=== PATIENT | female | born 1990 | race Caucasian/White ===

== ENCOUNTER → 2023-07-12 11:46 | Outpatient (CLI) | payer OTHER, SELFPAY ==
[2023-07-12 15:20] LABS: Urine N gonorrhoeae NOT DETECTED
[2023-07-12 15:27] LABS: Urine Chlamydia NOT DETECTED
== END ==
PROVIDERS: PCP Nurse Practitioner Family; Visit Provider Student in an Organized Health Care Education/Training Program
DX: Z34.81 Encounter for supervision of other normal pregnancy, first trimester (principal)
CPT/HCPCS: 87491; 87591

== ENCOUNTER → 2023-07-25 15:55 | Outpatient (CLI) | payer OTHER, SELFPAY ==
[2023-07-25 17:42] LABS: Add Manual Diff / Slide Review NO; Basophils Absolute Auto 0 /uL (0-100); Basophils Percent Auto 0.5 % (0-2); Eosinophils Absolute Auto 100 /uL (0-450); Eosinophils Percent Auto 1.3 % (2-4); Hematocrit 31.7 % (36-46); Hemoglobin 10.2 g/dL (12.0-16.0); Lymphocytes Absolute Auto 2100 /uL (1100-4500); Lymphocytes Percent Auto 29.4 % (25-40); Mean Corpuscular HGB Conc 32.3 % (30-36); Mean Corpuscular Volume 71.1 fL (80-100); Monocytes Absolute Auto 400 /uL (0-900); Monocytes Percent Auto 6.3 % (3-14); Neutrophils Absolute Auto 4500 /uL (1500-7000); Neutrophils Percent Auto 62.5 % (50-75); Platelet Count 415 X10^3/uL (150-400); Red Blood Cell Count 4.47 X10^6/uL (4.0-5.2); Red Cell Distribution Width 17.5 % (11.6-14.8); White Blood Cell Count 7.1 X10^3/uL (4.5-11.0)
[2023-07-25 18:06] LABS: Alanine Aminotransferase 15 IU/L (<35); Albumin 4.3 g/dL (3.5-5.0); Albumin Globulin Ratio 1.2 (1.0-2.8); Alkaline Phosphatase 58 U/L (38-126); Aspartate Aminotransferase 20 IU/L (14-36); BUN Creatinine Ratio 17.1 (6-22); Bilirubin Total 0.4 mg/dL (0.2-1.3); Blood Urea Nitrogen 7 mg/dL (7-17); Calcium 9.1 mg/dL (8.4-10.2); Carbon Dioxide 22 mmol/L (22-32); Chloride 104 mmol/L (98-107); Estimated Glomerular Filt Rate > 60 mL/min (>60); Globulin 3.5 g/dL (1.7-4.1); Glucose 79 mg/dL (70-100); HEMOLYSIS < 15 (0-50); Sodium 134 mmol/L (137-145); Total Protein 7.8 g/dL (6.3-8.2)
[2023-07-25 18:20] LABS: Free T4, Direct Thyroxine 1.32 ng/dL (0.78-2.19)
[2023-07-25 18:34] LABS: Thyroid Stimulating Hormone 0.707 uIU/mL (0.47-4.68)
[2023-07-25 19:44] LABS: Urine N gonorrhoeae NOT DETECTED
[2023-07-25 19:59] LABS: Urine Chlamydia NOT DETECTED
[2023-07-26 15:46] LABS: Hepatitis B Surface Antigen NEGATIVE s/c (NEGATIVE); Rubella Antibody IgG 14.2 IU/mL (>15)
[2023-07-26 16:12] LABS: HIV 1 & 2 Ab/Ag 4th Gen Combo NEGATIVE (NEGATIVE); Hep C Virus Ab w/Reflex Quant NEGATIVE s/c (NEGATIVE)
[2023-07-27 03:30] LABS: RPR Screen Non Reactive (Non Reactive)
[2023-07-27 08:42] LABS: Varicella IgG Antibody 630 index (Immune >165)
== END ==
LOC: LAB 15:58
PROVIDERS: PCP Nurse Practitioner Family; Referring Provider Student in an Organized Health Care Education/Training Program; Visit Provider Student in an Organized Health Care Education/Training Program
DX: O09.299 Supervision of pregnancy with other poor reproductive or obstetric history, unspecified trimester (principal)
CPT/HCPCS: 36415; 80053; 80055; 84439; 84443; 86787; 86803; 86850; 86900; 86901; 87086; 87389; 87491; 87591

== ENCOUNTER → 2023-09-07 13:15 | Outpatient (CLI) | payer OTHER, SELFPAY ==
[2023-09-07 15:01] LABS: INR 0.9 (0.9-1.3); Prothrombin Time 9.9 SECONDS (9.4-12.5)
[2023-09-07 15:03] LABS: PTT Partial Thromboplastin Tim 23 SECONDS (25.1-36.5)
[2023-09-07 15:14] LABS: Prolactin 51.9 ng/mL (3.0-18.6)
[2023-09-07 15:43] LABS: Vitamin D 25 Hydroxy (D3) 27.7 ng/mL (30.0-100.0)
[2023-09-10 15:31] LABS: AFP Value 33.4 ng/mL (.); Gest Age on Col Date 17.1 weeks (.); Insulin Dep Diabetes No (.); OSBR Risk 1IN 10000 (.); Results Report (.); Test Results *Screen Negative* (.)
[2023-09-12 02:36] LABS: Zinc 65 ug/dL (44-115)
== END ==
PROVIDERS: PCP Nurse Practitioner Family; Referring Provider Student in an Organized Health Care Education/Training Program; Visit Provider Student in an Organized Health Care Education/Training Program
DX: O99.840 Bariatric surgery status complicating pregnancy, unspecified trimester (principal)
CPT/HCPCS: 36415; 82105; 82306; 84146; 84630; 85610; 85730

== ENCOUNTER → 2023-09-11 15:16 | Outpatient (CLI) | payer OTHER, SELFPAY ==
--- NOTE | 2023-09-11 15:18 | DI.MRI.S_ITS ---
PROCEDURE: MR HEAD/BRAIN WO CON INDICATIONS: history of pituitary adenoma TECHNIQUE: Noncontrast axial T1 spin echo, axial T2 fast spin echo, sagittal and axial FLAIR, coronal T2 fast spin echo, axial gradient echo, axial diffusion and ADC through the brain. Additional thin section coronal T1 weighted and coronal T2 weighted images were obtained through the pituitary gland. COMPARISON: [facility], MR, MR ANGIO HEAD WO CON, 09/11/2023, 15:21. FINDINGS: Image quality: Excellent. CSF Spaces: Basal cisterns are patent. No extra-axial fluid collections. Ventricles are normal in size and shape. Brain: In this patient with this given history, scrutiny is given to the pituitary. To the limits of this noncontrast study, no masses are seen. A normal appearing T1 hyperintense bright spot can be seen along the posterior aspect of the pituitary. The pituitary stock is seen along the midline. The optic chiasm and ventral forebrain are within normal limits. No intracranial masses or hemorrhage. Barnett/white matter interface is normal. Brainstem appears normal. Diffusion-weighted images demonstrate no acute infarct. No chronic ischemic insults. Normal intravascular flow voids are present. Skull and face: Calvarium has normal marrow signal. Orbits appear normal. Sinuses: Sinuses and mastoids are clear. IMPRESSION: No pituitary abnormality is identified, to the limits of this noncontrast study. Dictated by: Isrrael Mei M.D. on 09/11/2023 at 16:29 Approved by: Isrrael Mei M.D. on 09/11/2023 at 16:31
--- NOTE | 2023-09-11 15:18 | DI.MRI.S_ITS ---
PROCEDURE: MR ANGIO HEAD WO CON INDICATIONS: check pituitary size TECHNIQUE: Noncontrast axial 3-D [id number] MR angiogram, with 3-dimensional maximum intensity projection (MIP) reformats of the internal carotid arteries and posterior circulation then performed. COMPARISON: None. FINDINGS: Image quality: Excellent. Anterior circulation: Intracranial internal carotid arteries demonstrate normal size and intraluminal flow signal. The flow within the paired anterior cerebral arteries is normal and symmetric. The flow within the middle cerebral arteries is normal and symmetric. The anterior communicating artery is seen. No stenoses, occlusions, or aneurysms. Posterior circulation: Visualized portions of the vertebral arteries demonstrate normal caliber, and join to form a normal appearing basilar artery. The flow within the posterior cerebral arteries is normal and symmetric. No stenoses, occlusions, or aneurysms. IMPRESSION: Unremarkable MR angiogram of the brain Approved by: Azeem Howell M.D. on 09/11/2023 at 18:49
== END ==
PROVIDERS: PCP Nurse Practitioner Family; Referring Provider Student in an Organized Health Care Education/Training Program; Visit Provider Student in an Organized Health Care Education/Training Program
DX: O09.291 Supervision of pregnancy with other poor reproductive or obstetric history, first trimester (principal); O99.281 Endocrine, nutritional and metabolic diseases complicating pregnancy, first trimester; E03.9 Hypothyroidism, unspecified; Z87.898 Personal history of other specified conditions
CPT/HCPCS: 70544; 70551

== ENCOUNTER → 2023-10-19 11:08 | Outpatient (CLI) | payer OTHER, SELFPAY ==
[2023-10-19 13:33] LABS: Free T4, Direct Thyroxine 1.27 ng/dL (0.78-2.19)
[2023-10-19 13:47] LABS: Thyroid Stimulating Hormone 0.325 uIU/mL (0.47-4.68)
== END ==
PROVIDERS: PCP Nurse Practitioner Family; Referring Provider Obstetrics & Gynecology; Visit Provider Obstetrics & Gynecology
DX: O99.280 Endocrine, nutritional and metabolic diseases complicating pregnancy, unspecified trimester (principal); E03.9 Hypothyroidism, unspecified
CPT/HCPCS: 36415; 84439; 84443

== ENCOUNTER → 2023-10-22 15:02 | Outpatient (CLI) | payer OTHER, SELFPAY ==
--- NOTE | 2023-10-22 15:03 | DI.US.S_ITS ---
PROCEDURE: US OB FOLLOW UP INDICATIONS: F/U RVOT/L S Spine were not clearly seen on first scan OUTSIDE/PRIOR DATING DATA: Last menstrual period (LMP): Unknown. LMP-based estimated date of delivery (DAYAN): Unknown. First dating scan (date and location): 06/28/2023. Estimated date of delivery (DAYAN) from first dating scan: 02/20/2024. The calculations are made using the clinical DAYAN of 02/14/2024. TECHNIQUE: Real-time scanning was performed of the fetus, with image documentation and biometric measurements. COMPARISON: [facility], , US OB <= 14 WEEKS FETUS, 07/12/2023, 9:16. Outside Facility, , US OB ANATOMICAL, 10/03/2023, 12:40. FINDINGS: General: A single living intrauterine gestation is present. Presentation: Breech. Placenta: Placental position is anterior , without previa. Amniotic fluid index: 10.2 cm, normal range is 5-24 cm. Single deepest vertical pocket is 3.3 cm. heart rate: 145 beats per minute. Maternal cervical canal: 3.5 cm long. Normal lower limit is 2.5 cm. biometrics: Composite gestational age from initial scan: 22 weeks 5 days Other: Right ventricular outflow tract is within normal limits. Spine appears to be within normal limits. IMPRESSION: Single live intrauterine with gestational age of 22 weeks 5 days. Right ventricular outflow tract is within normal limits. Spine appears to be within normal limits. We strive to produce accurate, complete, and clear reports of imaging services. To assist us in improving patient care, this report was composed using standard report templates and voice recognition software. Therefore, it may contain abnormal punctuation, insertions and/or omissions. Occasional wrong-word or sound-alike substitutions may occur. Though we review the report and make efforts to correct it, we do recommend that the report be read carefully in proper context to recognize any text inaccuracies. Dictated by: Angelia De La Cruz M.D. on 10/23/2023 at 8:33 Approved by: Angelia De La Cruz M.D. on 10/23/2023 at 8:37
== END ==
PROVIDERS: PCP Nurse Practitioner Family; Referring Provider Obstetrics & Gynecology; Visit Provider Obstetrics & Gynecology
DX: O32.1XX0 Maternal care for breech presentation, not applicable or unspecified (principal); Z3A.22 22 weeks gestation of pregnancy
CPT/HCPCS: 76816

== ENCOUNTER → 2023-11-13 16:13 | Outpatient (CLI) | payer OTHER, SELFPAY ==
[2023-11-13 18:16] LABS: Add Manual Diff / Slide Review NO; Basophils Absolute Auto 0 /uL (0-100); Basophils Percent Auto 0.4 % (0-2); Eosinophils Absolute Auto 100 /uL (0-450); Eosinophils Percent Auto 1.7 % (2-4); Hematocrit 36.6 % (36-46); Hemoglobin 12.4 g/dL (12.0-16.0); Lymphocytes Absolute Auto 2200 /uL (1100-4500); Lymphocytes Percent Auto 26.5 % (25-40); Mean Corpuscular HGB Conc 33.7 % (30-36); Mean Corpuscular Hemoglobin 29.3 PG (26-34); Mean Corpuscular Volume 86.7 fL (80-100); Monocytes Absolute Auto 400 /uL (0-900); Monocytes Percent Auto 5.1 % (3-14); Neutrophils Absolute Auto 5400 /uL (1500-7000); Neutrophils Percent Auto 66.3 % (50-75); Platelet Count 273 X10^3/uL (150-400); Red Blood Cell Count 4.22 X10^6/uL (4.0-5.2); Red Cell Distribution Width 17.9 % (11.6-14.8); White Blood Cell Count 8.2 X10^3/uL (4.5-11.0)
[2023-11-13 19:00] LABS: Hemoglobin A1C% w Est Avg Glu 4.7 % (4.0-6.0)
[2023-11-13 19:05] LABS: HEMOLYSIS < 15 (0-50); Iron 81 ug/dL (37-170)
[2023-11-13 19:16] LABS: Percent Iron Saturation 18 % (15-50); Total Iron Binding Capacity 447 ug/dL (265-497); Transferrin 374 mg/dL (206-381)
[2023-11-13 19:24] LABS: Vitamin D 25 Hydroxy (D3) 21.2 ng/mL (30.0-100.0)
[2023-11-13 19:26] LABS: Prolactin 128.1 ng/mL (3.0-18.6)
[2023-11-13 19:59] LABS: Vitamin B12 211 pg/mL (239-931)
== END ==
LOC: LAB 16:14
PROVIDERS: PCP Nurse Practitioner Family; Referring Provider Obstetrics & Gynecology; Visit Provider Obstetrics & Gynecology
DX: O99.019 Anemia complicating pregnancy, unspecified trimester (principal); O99.840 Bariatric surgery status complicating pregnancy, unspecified trimester; D49.7 Neoplasm of unspecified behavior of endocrine glands and other parts of nervous system; E53.8 Deficiency of other specified B group vitamins
CPT/HCPCS: 82306; 82607; 83036; 83540; 83550; 84146; 85025

== ENCOUNTER → 2023-12-21 14:51 | Outpatient (CLI) | payer OTHER, SELFPAY ==
--- NOTE | 2023-12-21 14:51 | DI.US.S_ITS ---
PROCEDURE: US OB FOLLOW UP INDICATIONS: re-evaluate growth at 32wks EGA OUTSIDE/PRIOR DATING DATA: Last menstrual period (LMP): Unknown. LMP-based estimated date of delivery (DAYAN): Unknown. First dating scan (date and location): 06/28/2023. Estimated date of delivery (DAYAN) from first dating scan: 02/20/2024. The calculations are made using the working DAYAN of 02/14/2024 TECHNIQUE: Real-time scanning was performed of the fetus, with image documentation and biometric measurements. Endovaginal scanning: No COMPARISON: [facility], , OB FOLLOW UP, 10/22/2023, 15:16. FINDINGS: General: A single living intrauterine gestation is present. Presentation: Transverse. Placenta: Placental position is anterior , without previa. Amniotic fluid index: 13.1 cm, normal range is 5-24 cm. Single deepest vertical pocket is 4.6 cm. heart rate: 147 beats per minute. Maternal cervical canal: 4.9 cm long. Normal lower limit is 2.5 cm. biometrics: Biparietal diameter: 8.0 cm, 32 week 1 day Head circumference: , 33 week 6 day Abdominal circumference: 30.6 cm, 26 week 8 day Femur length: 31.4 cm, 31 week 4 day Clinically estimated gestational age: 32 week 1 day Composite gestational age from present scan: 32 week 1 day Estimated weight and percentile: 1778 g, 21 percentile IMPRESSION: Single live intrauterine consistent with a 32 week 1 day gestation by current ultrasound EFW 1778 g, 21 percentile Approved by: Azeem Howell M.D. on 12/21/2023 at 17:14
== END ==
PROVIDERS: PCP Nurse Practitioner Family; Referring Provider Student in an Organized Health Care Education/Training Program; Visit Provider Student in an Organized Health Care Education/Training Program
DX: O09.293 Supervision of pregnancy with other poor reproductive or obstetric history, third trimester (principal); Z3A.32 32 weeks gestation of pregnancy
CPT/HCPCS: 76816

== ENCOUNTER → 2024-01-22 08:14 | Outpatient (CLI) | payer OTHER, SELFPAY ==
--- NOTE | 2024-01-22 08:15 | DI.US.S_ITS ---
PROCEDURE: US OB FOLLOW UP INDICATIONS: repeat growth and presentation OUTSIDE/PRIOR DATING DATA: Last menstrual period (LMP): Unknown LMP-based estimated date of delivery (DAYAN): Unknown First dating scan (date and location): 06/28/2023 Estimated date of delivery (DAYAN) from first dating scan: 02/20/2024 The calculations are made using the working DAYAN of 02/14/2024. TECHNIQUE: Real-time scanning was performed of the fetus, with image documentation and biometric measurements. Endovaginal scanning: Not performed COMPARISON: [facility], , OB FOLLOW UP, 12/21/2023, 15:25. FINDINGS: General: A single living intrauterine gestation is present. Presentation: Vertex Placenta: Placental position is anterior, without previa. Amniotic fluid index: 12.9 cm, normal range is 5-24 cm. Single deepest vertical pocket is 4.7 cm. heart rate: 162 beats per minute. Maternal cervical canal: Not well seen. biometrics: Biparietal diameter: 9.1 cm, 36 weeks, 6 days. Head circumference: 32.5 cm, 36 weeks, 5 days. Abdominal circumference: 32.2 cm, 36 weeks, 1 day. Femur length: 6.7 cm, 34 weeks, 4 days. Clinically estimated gestational age: 36 weeks, 5 days Composite gestational age from present scan: 36 weeks, 1 day Estimated weight and percentile: 2787 g, 32%. Other: Not applicable. IMPRESSION: 1. Single live intrauterine gestation with fetus in vertex presentation. heart rate is 162 beats per minute. Normal LETICIA at 12.9 cm. Normal growth. Estimated weight is at 32%. We strive to produce accurate, complete, and clear reports of imaging services. To assist us in improving patient care, this report was composed using standard report templates and voice recognition software. Therefore, it may contain abnormal punctuation, insertions and/or omissions. Occasional wrong-word or sound-alike substitutions may occur. Though we review the report and make efforts to correct it, we do recommend that the report be read carefully in proper context to recognize any text inaccuracies. Dictated by: Adrián Kim M.D. on 01/22/2024 at 16:59 Approved by: Adrián Kim M.D. on 01/22/2024 at 17:02
== END ==
PROVIDERS: PCP Nurse Practitioner Family; Referring Provider Student in an Organized Health Care Education/Training Program; Visit Provider Student in an Organized Health Care Education/Training Program
DX: O99.843 Bariatric surgery status complicating pregnancy, third trimester (principal); Z3A.36 36 weeks gestation of pregnancy
CPT/HCPCS: 76816; 87653

== ENCOUNTER → 2024-01-22 09:34 | Outpatient (CLI) | payer OTHER, SELFPAY ==
[2024-01-23 10:05] LABS: Strep Grp B PCR NEG for Grp B Strep
== END ==
PROVIDERS: PCP Nurse Practitioner Family; Visit Provider Obstetrics & Gynecology
DX: Z34.03 Encounter for supervision of normal first pregnancy, third trimester (principal); Z3A.36 36 weeks gestation of pregnancy
CPT/HCPCS: 87653

== ENCOUNTER 2024-02-11 11:13 | Outpatient (CLI) | payer OTHER, SELFPAY ==
--- NOTE | 2024-02-11 15:54 | PM.OBTRLD ---
Visit Information Visit Information Date of evaluation: 02/11/24 Primary OB Provider: Mara Sim Reason for Evaluation: Yes rupture of membranes Vital Signs Vital Signs: see OBI[facility] Medical History (Updated 02/11/24 @ 15:58 by Mara Sim DO) PCOS (polycystic ovarian syndrome) Hypothyroidism Anemia Shingles Migraine without aura Congenital soft palate abnormality labor History of recurrent miscarriages Precipitous delivery Pituitary tumor Surgical History (Updated 07/03/23 @ 13:46 by Mary Moore, RN) History of mandibular surgery History of cholecystectomy Status post selective transsphenoidal pituitary adenomectomy History of gastric bypass Family History (Updated 07/03/23 @ 13:51 by Mary Moore, CINDI) Father Colon cancer Obesity Diabetes mellitus TIA (transient ischemic attack) Grandmother Colon cancer Granddaughter Breast cancer Heavy smoker Grandfather Stroke Grandfather Family estrangement Aunt Epilepsy Mother Diverticulosis Sister Hypothyroidism Social History (System 07/02/23 @ 15:07 by Lady Sole Watson) marital status: number of children: 1 lives independently: Yes caregiver/support person: Yes housing: apartment pets and animals: No education level: college (associate's degree) occupational status: employed current occupational exposures/hazards: No special terrell needs: No travel history: recent ([place], [place], [place], domestic) seatbelt use: always helmet use: Yes water heater temp set < 120 deg: Yes working smoke detector in home: Yes fire extinguisher in home: No carbon monox detector in home: Yes firearms in home: No do you feel safe at home: Yes Smoking Status: Former smoker (briefly several years ago) second hand exposure: Yes ( vapes and does not leave the room when he does so) alcohol intake: former (occasionally when not ) substance use type: does not use during the past year weight has: remained stable well-balanced diet: about half the time daily servings fruits/ve-4 (~2, mostly fruit) caffeine: Yes (AM cup coffee) Type(s) of exercise: walking and swimming Evaluation Evaluation Baseline heart rate: 130 Variability: Moderate (11-25) monitor accelerations: Present Monitor Decelerations: Absent Contraction Frequency (minutes): 0 Category of Tracing: Reactive Non-invasive Membranes Rupture Test: negative Diagnosis, Plan/Disposition Final Diagnosis (1) Encounter for suspected premature rupture of membranes, with rupture of membranes not found: Status: Acute Plan/Disposition Plan: Patient was placed on the elective induction waiting list, potentially for 02/19/24. Otherwise, pt to f/u in clinic next week at 40wks. OB Disposition: home
== END 2024-02-11 12:41 | disposition home or self-care (01) ==
LOC: LABOR 12:41 → OB 02-13 09:42
PROVIDERS: PCP Nurse Practitioner Family; Referring Provider Student in an Organized Health Care Education/Training Program; Visit Provider Student in an Organized Health Care Education/Training Program
DX: Z03.71 Encounter for suspected problem with amniotic cavity and membrane ruled out (principal)
CPT/HCPCS: 59025; 84112; G0378; G0379

== ENCOUNTER 2024-02-14 23:44 | Inpatient (IN) | payer OTHER, SELFPAY ==
[2024-02-15] MEDS: ONDANSETRON 4 MG/2 ML INJ IV (01:01)
[2024-02-15 01:24] LABS: Add Manual Diff / Slide Review NO; Basophils Absolute Auto 100 /uL (0-100); Basophils Percent Auto 0.9 % (0-2); Eosinophils Absolute Auto 100 /uL (0-450); Eosinophils Percent Auto 0.5 % (2-4); Hematocrit 38.9 % (36-46); Hemoglobin 13.2 g/dL (12.0-16.0); Lymphocytes Absolute Auto 1600 /uL (1100-4500); Lymphocytes Percent Auto 16.1 % (25-40); Mean Corpuscular HGB Conc 33.9 % (30-36); Mean Corpuscular Hemoglobin 30.3 PG (26-34); Mean Corpuscular Volume 89.4 fL (80-100); Monocytes Absolute Auto 700 /uL (0-900); Neutrophils Absolute Auto 7400 /uL (1500-7000); Neutrophils Percent Auto 75.5 % (50-75); Platelet Count 229 X10^3/uL (150-400); Red Blood Cell Count 4.35 X10^6/uL (4.0-5.2); Red Cell Distribution Width 15.3 % (11.6-14.8); White Blood Cell Count 9.8 X10^3/uL (4.5-11.0)
--- NOTE | 2024-02-15 02:10 | PM.OBHP.1 ---
OB HPI Date/Time Date of admission: 02/15/24 Date Patient Seen: 02/15/24 Time Patient Seen: 02:10 History of Present Condition Chief complaint: Labor : 6 Para: 1 Estimated Date of Delivery: 02/14/24 Estimated Gestational Age (weeks): 40+1 Narrative: Josefina Torres is a 33 year old female Comments: admitted in labor with regular painful contractions. No loss of fluid. History of Present care: good care Dating criteria: LMP confirmed by 1st trimester US Ultrasounds: normal mid trimester US Narrative: Ultrasound Ultrasound Details:: Dating US 07/12/23: jane IUP, CRL 1.96cm, + FCA; normal appearing uterus, cervix, bilateral ovaries Ultrasound US 10/03/23: Anterior placenta, EFW 63%ile, suboptimal RVOT/spine views Follow-up US 11/01/23: Normal RVOT, normal spine Growth 12/21/23: EFW 21%ile Follow-up US 01/22/24: vtx presentation, EFW 32%ile, normal amniotic fluid Specific Issues/Plans Pre-existing iron def anemia--> following with hematology (Dr. Valencia in [facility]), undergoing iron infusions Hx gastric bypass (Ayaan en Y) 2017--> avoid aspirin/NSAIDs; [x ] baseline iron panel, vitB12, folate, vitD, Ca; [ x] CBC, iron, ferritin, Ca, vitD q trimester; [x ] 1wk fingersticks instead of 1hr GTT for Ayaan-en-Y (fastings normal, 08/31 elevated, A1C 4.7) Current gastric ulcer--> following with GI, on PPI Hx of pituitary tumor 2011, recent questionable imaging findings of new mass--> pt with headaches, treated previously with botox injections Hypothyroidism--> on 100mcg synthroid; [x ] baseline TSH/FT4 (0.707/1.32); [ ] q trimester TSH [x ] cfDNA- low risk XX; [x ] MSAFP- neg Following with MFM at [facility] (see consult note 08/17/23)--> [x ] recommended baseline pituitary MRI- neg; [x ] baseline prolactin 52 (repeat q8wks- 128); anatomy sono at [facility], growth scans in [place] at 26, 32, and 36 weeks Rubella NI NILM/HPV neg pap at [facility] (active duty) Assigned to [facility] Preadmission Labs Blood type: A (+) positive -: Antibody screen: negative, Cystic fibrosis screen: unknown, GBS status: negative, HBsAG: negative, HIV: negative, HSV 1: unknown, HSV 2: unknown and RPR/VDLR: negative -: Chlamydia screen: not detected and Gonorrhea screen: not detected -: Rubella: not immune and Varicella: immune HCT: 38.9 HCAB: negative PAP: Normal Evaluation Evaluation Baseline heart rate: 120 Variability: Moderate (11-25) monitor accelerations: Present Monitor Decelerations: Absent Contraction Frequency (minutes): 4 Status: Category l Dilation (cm): 7 Effacement (%): 90 station: -1 Position of cervix: mid Consistency: soft Comments: AROM performed at 2:00am, clear fluid PFSH Medical History (Updated 02/11/24 @ 15:58 by Mara Sim DO) PCOS (polycystic ovarian syndrome) Hypothyroidism Anemia Shingles Migraine without aura Congenital soft palate abnormality labor History of recurrent miscarriages Precipitous delivery Pituitary tumor Surgical History (Updated 07/03/23 @ 13:46 by Mary Moore, CINDI) History of mandibular surgery History of cholecystectomy Status post selective transsphenoidal pituitary adenomectomy History of gastric bypass Family History (Updated 07/03/23 @ 13:51 by Mary Moore, RN) Father Colon cancer Obesity Diabetes mellitus TIA (transient ischemic attack) Grandmother Colon cancer Granddaughter Breast cancer Heavy smoker Grandfather Stroke Grandfather Family estrangement Aunt Epilepsy Mother Diverticulosis Sister Hypothyroidism Social History (System 07/02/23 @ 15:07 by Lady Sole Watson) marital status: number of children: 1 lives independently: Yes caregiver/support person: Yes housing: apartment pets and animals: No education level: college (associate's degree) occupational status: employed current occupational exposures/hazards: No special terrell needs: No travel history: recent ([place], [place], [place], domestic) seatbelt use: always helmet use: Yes water heater temp set < 120 deg: Yes working smoke detector in home: Yes fire extinguisher in home: No carbon monox detector in home: Yes firearms in home: No do you feel safe at home: Yes Smoking Status: Former smoker (briefly several years ago) second hand exposure: Yes ( vapes and does not leave the room when he does so) alcohol intake: former (occasionally when not ) substance use type: does not use during the past year weight has: remained stable well-balanced diet: about half the time daily servings fruits/ve-4 (~2, mostly fruit) caffeine: Yes (AM cup coffee) Type(s) of exercise: walking and swimming Meds Home Medications and Allergies Home Medications Medication Instructions Recorded Confirmed Type levothyroxine 100 mcg tablet 100 mcg PO DAILY 07/02/23 02/15/24 History pediatric multivitamin no.209 tab PO 07/02/23 02/11/24 History (Children's Multivitamin Gummy chewable tablet) sucralfate 1 gram tablet 1 g PO QAC 07/02/23 02/15/24 History cyanocobalamin (vitamin B-12) See Rx Instructions .Route .COMPLEX 07/03/23 02/15/24 History 1,000 mcg/mL injection solution docusate sodium 100 mg capsule 100 mg PO DAILY 07/03/23 02/15/24 History ferrous sulfate 325 mg (65 mg 325 mg PO DAILY 07/03/23 02/15/24 History iron) tablet meclizine 25 mg tablet 25 mg PO TID PRN Acid Reflux 07/03/23 02/15/24 History omeprazole 20 mg capsule,delayed 20 mg PO BID 07/03/23 02/15/24 History release progesterone micronized 200 mg 200 mg PO BID #60 caps 09/24/23 02/15/24 Rx capsule epinephrine 0.3 mg/0.3 mL 0.3 mg (0.3 mL) IM ONCE #2 ea 11/13/23 02/15/24 Rx injection, auto-injector (EpiPen 2-Michael) blood sugar diagnostic (Blood #120 ea 11/14/23 02/11/24 Rx Glucose Test strips) blood-glucose meter (Blood Glucose #1 ea 11/14/23 02/11/24 Rx Monitoring kit) lancets #120 ea 11/14/23 02/11/24 Rx breast pump #1 ea 01/22/24 02/11/24 Rx sennosides 8.6 mg-docusate sodium 1 tab-cap PO BEDTIME #30 tabs 02/06/24 02/15/24 Rx 50 mg tablet Allergies Allergy/AdvReac Type Severity Reaction Status Date / Time bee venom protein (honey bee) Allergy Severe Anaphylaxis Verified 02/15/24 00:41 coconut Allergy Severe Difficulty Verified 02/15/24 00:41 Breathing Review of Systems Review of Systems ROS: Yes All systems reviewed with the patient and are negative except as otherwise documented OB Exam Vital signs Blood Pressure: 113/69 Pulse Rate: 96 Temperature: 98.1 F HENMT Head: normal to inspection Resp Effort & Inspection: normal respiratory effort and able to speak in complete sentences Cardio Rate: regular rate Rhythm: regular rhythm Extremities Lower extremity: Yes normal to inspection GI Other: gravid, nontender, nondistended Other: EFW 3500g Objective Labs 02/15/24 00:59 Labs: Laboratory Results - last 24 hr 02/15/24 00:59 WBC 9.8 RBC 4.35 Hgb 13.2 Hct 38.9 MCV 89.4 MCH 30.3 MCHC 33.9 RDW 15.3 H Plt Count 229 Neut % (Auto) 75.5 H Lymph % (Auto) 16.1 L [place] % (Auto) 7.0 Eos % (Auto) 0.5 L Baso % (Auto) 0.9 Neut # (Auto) 7400 H Lymph # (Auto) 1600 [place] # (Auto) 700 Eos # (Auto) 100 Baso # (Auto) 100 Blood Type A Positive Antibody Screen Negative Assessment and Plan Assessment and Plan Assessment and Plan narrative: 33yo at 40+1wks admitted in active labor. -CBC, T&S on admission -continuous EFM -epidural PRN -GBS neg, ppx not indicated -PPH risk low -VTE risk low, SCDs with epidural -anticipate L&D Counseling: Common procedures and interventions related to the management of were explained to the patient, including assistance at vaginal delivery with episiotomy, vacuum, or forceps, use of medications to stop premature labor or induce labor, and assessment including auscultation (listening to the heart), use of electronic monitoring (external and / or internal), and use of scalp electrode and/or intrauterine pressure catheter.? It was also explained that approximately 20-30% of mothers have a need for delivery during their labor course. It was explained to the patient that , labor and delivery are ordinarily normal physiological events and can be expected to provide a healthy outcome for mother and baby in the majority of cases. However, there are complications that may arise during , labor, and delivery, such as: hemorrhage requiring administration of blood and/or blood products, surgical intervention, possibly even hysterectomy for life-saving purposes; possibility of infection requiring antibiotics, prolonged hospital stay, and rarely surgical intervention; possibility of blood clots;? possibility of retained products of conception requiring surgical intervention;? possibility of serious tears or injury to the vagina, cervix, perineum, or rectum;? possibility of injury to abdominal structures if delivery is required;? and rarely maternal or may occur. Time-Based Coding :: [30min] spent with patient and on the chart (including review of chart, obtaining history, exam, reviewing outside data, placing orders, documenting exam and treatment plan, and counseling patient) on [02/15/24].
[2024-02-15 02:18] VITALS: BP 113/69; PULSE 96; TEMP 36.7
[2024-02-15 03:11] VITALS: BP 127/78
[2024-02-15] MEDS: OXYTOCIN PREMIX 30 UNIT/500 ML PLAST..BAG 200 UNIT IV (04:29)
--- NOTE | 2024-02-15 04:50 | PM.OBPRVD ---
Labor & Delivery Delivery date: 02/15/24 Intrapartal Events: None Delivery augmentation: rupture of membranes Delivery monitor: external FHT and external uterine Route of delivery: L&D Laceration Description: Perineal - 1st Degree Delivery repair: vicryl Estimated blood loss (mL): 50 Anesthesia Type: Local Complications: none Narrative: Upon entering the delivery room, the patient had progressed to C/C/+4 () without anesthesia or pitocin augmentation. After one set of maternal pushing efforts, the infant delivered in OA position and restituted ROT. The anterior shoulder delivered with gentle downward pressure. The posterior shoulder and rest of body delivered with ease. The cord was doubly clamped and cut after a 60sec delay with the infant placed on maternal abdomen. The placenta delivered spontaneously and was intact with a 3-vessel cord. The fundus was noted to be firm with bimanual massage and pitocin. Inspection of the cervix, vagina, and perineum was notable for a small 1st degree perineal laceration. Repair was performed using 3-0 Vicryl in a running, unlocked fashion. At the end of the repair, all tissues noted to be hemostatic. All sponges were removed from the vagina. The patient tolerated delivery well and remained in the labor room with the at the bedside. Coleman Baby 1: gender: Female Presentation: vertex Placenta delivery description: Spontaneous Cord Vessel Description: 3 Vessels score (1 min): 8 score (5 min): 9 weight: 6 lb 9.363 oz Plan for aftercare: Routine care
[2024-02-15] MEDS: DERMOPLAST SPRAY 20% 60 ML 1 SPRAY TOP (05:54)
[2024-02-15] MEDS: ACETAMINOPHEN 325 MG TABLET 650 MG PO ×4 (05:55→23:55)
[2024-02-15] MEDS: PRENATAL VIT,CALC/IRON/FOLIC 1 TABLET 1 TAB PO (08:55)
[2024-02-15] MEDS: DOCUSATE 100 MG CAPSULE PO (08:56)
[2024-02-15] MEDS: LEVOTHYROXINE 100 MCG TABLET PO (22:14)
[2024-02-16] MEDS: LANOLIN OINT 7 GM 1 APPLIC TOP (00:04)
[2024-02-16] MEDS: ACETAMINOPHEN 325 MG TABLET 650 MG PO ×2 (06:11→13:26)
--- NOTE | 2024-02-16 09:34 | P.DS_ITS ---
Discharge Providers Provider Date of admission: 02/14/24 23:44 Discharge Date: 02/16/24 Primary care physician: JOSÉ ANTONIO Scott Consults: 02/15/24 00:32 Consult to Anesthesiology Urgent Comment: Consulting Provider: Anesthesiologist Reason for consultation: Epidural 02/16/24 04:49 Consult to Lead Recreation Assistant Routine Comment: Discharge provider: Soila Olivas MD Summary Hospital Course Date Patient Seen: 02/16/24 Time Patient Seen: 09:34 Diagnoses: s/p of [facility] Hospital Course: 33yo admitted to facility at 40w1d in active term labor. Patient rapidly progressed to complete cervical dilation without augmentation or epidural anesthesia. Rapid second stage with uncomplicated delivery of vigorous female , 1st degree perineal laceration repaired in standard fashion. Patient had an uncomplicated course and requested discharge to home today, PPD1 meeting all appropriate milestones. Peripartum Data Infant Delivery Method: Natural Vaginal Laceration Description: Perineal - 1st Degree complications: none 1: Gender: Female Disposition of : home Status at Discharge Cognitive/behavioral status at discharge: oriented Functional status at discharge: independent ambulation Overall status at discharge: patient is back to baseline Time Spent with Patient Time attestation: Total time spent providing and/or coordinating discharge services: Time spent: Less than 30 minutes Objective Labs 02/15/24 00:59 Exam Vital Signs (past 8 hours): BP 109/64 HR 86 RR 16 Tc 98.4F Const General: cooperative, healthy appearing and comfortable HENMT Head: normal to inspection Chest Chest: normal inspection of the chest Resp Effort & Inspection: normal respiratory effort Cardio Pulses: normal peripheral pulses GI Other: fundus firm << umb, non-tender Other: deferred Skin General: no rashes or lesions noted Neuro General: patient alert, patient awake and patient oriented x3 Extrem General: normal to inspection Psych Mental Status: mental status grossly normal Judgment: judgment good Discharge Plan Discharge Plan Patient Disposition: Home Provider Discharge Comment: Nothing in the vagina for 4 weeks. No tampons, intercourse, douching, swimming in fresh water/pools/hot tubs. Tub baths are okay if the tub is cleaned well first Discharge orders & Medications Prescriptions: New acetaminophen 325 mg Tablet 650 mg PO Q6HR PRN (Reason: Pain, Mild (1-3)) Qty: 30 0RF Dermoplast (with menthol) 20-0.5 % Aerosol 1 spray topical Q1HR PRN (Reason: perineal pain) Qty: 56 1RF Purelan Cream 1 applic topical PRN PRN (Reason: Tenderness) Qty: 7 2RF [employer]ani 12.5-50 % Pads, Medicated 1 pad topical Q30M PRN (Reason: Itching) Qty: 40 1RF Continued Children's Multivitamin Gummy Tablet,Chewable PO levothyroxine 100 mcg tablet 100 mcg PO DAILY omeprazole 20 mg capsule,delayed release(DR/EC) 20 mg PO BID cyanocobalamin (vitamin B-12) 1,000 mcg/mL solution See Rx Instructions .ROUTE .COMPLEX Rx Instructions: 100 mcg intramuscularly. twice a month meclizine 25 mg tablet 25 mg PO TID PRN (Reason: Acid Reflux) Patient Comments: I'm not taking it unless I need it per patient ferrous sulfate 325 mg (65 mg iron) tablet 325 mg PO DAILY docusate sodium 100 mg capsule 100 mg PO DAILY epinephrine [EpiPen 2-Michael] 0.3 mg/0.3 mL auto-injector 0.3 mg IM ONCE Qty: 2 0RF Patient Comments: per patient I last needed it 5 years ago Rx Instructions: as a single dose; may repeat once (DME) breast pump Device See Rx Instructions .ROUTE .MEDSUPPLY Qty: 1 0RF Rx Instructions: double electric breast pump sennosides-docusate sodium 8.6-50 mg tablet 1 tab-cap PO BEDTIME Qty: 30 4RF Discontinued sucralfate 1 gram tablet 1 g PO QAC Patient Comments: no longer taking progesterone micronized 200 mg capsule 200 mg PO BID Qty: 60 0RF Patient Comments: I stopped at 16 weeks per patient (DME) Blood Glucose Test Strip See Rx Instructions .ROUTE .MEDSUPPLY Qty: 120 3RF Rx Instructions: Testing blood sugars fasting and 2 hr PP (DME) lancets Misc See Rx Instructions .ROUTE .MEDSUPPLY Qty: 120 3RF Rx Instructions: Testing blood sugars fasting and 2 hr PP (DME) blood-glucose meter [Blood Glucose Monitoring] Kit See Rx Instructions .ROUTE .MEDSUPPLY Qty: 1 0RF Rx Instructions: To use with testing fasting and 2 hr PP blood sugars Follow up/Referrals: Fernanda Soler ARNP [Primary Care Provider] - Soila Olivas MD [Physician] - (Appointment with on at 11:30 AM. Make a frenuotomy appointment with [facility] at [phone] ) Diet/Activity/Treatments Diet: Regular Visit Report/Discharge Packet Stand Alone Forms: Patient Portal/API, Stroke Signs & Symptoms Discharge Data Primary Care Provider: Fernanda Soler
[2024-02-16 10:03] VITALS: BP 116/81; PULSE 91; RESP 18; TEMP 36.8
[2024-02-16] MEDS: DOCUSATE 100 MG CAPSULE PO (10:48)
[2024-02-16] MEDS: PRENATAL VIT,CALC/IRON/FOLIC 1 TABLET 1 TAB PO (10:48)
[2024-02-16 11:20] VITALS: BP 116/81; PULSE 91; RESP 18; TEMP 36.8
[2024-02-16] MEDS: MEASLES,MUMPS,RUBELLA VACC/PF 0.5 ML VIAL SUBCUT (13:28)
== END 2024-02-16 13:55 | disposition home or self-care (01) | DRG 807 ==
PROVIDERS: Admitting Provider Student in an Organized Health Care Education/Training Program; PCP Nurse Practitioner Family; Referring Provider Student in an Organized Health Care Education/Training Program; Visit Provider Student in an Organized Health Care Education/Training Program
DX: O70.0 First degree perineal laceration during delivery (principal); Z37.0 Single live birth; Z3A.40 40 weeks gestation of pregnancy
CPT/HCPCS: 36415; 59050; 59400; 59409; 85025; 86850; 86900; 86901; G0379; J2405; J2590

== ENCOUNTER 2024-06-07 15:24 | Emergency (ER) | payer OTHER, SELFPAY ==
[2024-06-07] VITALS (13 sets, daily range): BP systolic 90–123; BP diastolic 51–71; PULSE 79–124; RESP 18–20; TEMP 36.8–37.3; O2SAT 95–98; BMI 23.9
[2024-06-07 16:03] LABS: Add Manual Diff / Slide Review NO; Basophils Absolute Auto 0 /uL (0-100); Basophils Percent Auto 0.3 % (0-2); Eosinophils Absolute Auto 200 /uL (0-450); Hemoglobin 13.1 g/dL (12.0-16.0); Lymphocytes Absolute Auto 1200 /uL (1100-4500); Lymphocytes Percent Auto 7.8 % (25-40); Mean Corpuscular HGB Conc 32.7 % (30-36); Mean Corpuscular Hemoglobin 29.1 PG (26-34); Mean Corpuscular Volume 88.9 fL (80-100); Monocytes Absolute Auto 900 /uL (0-900); Monocytes Percent Auto 5.7 % (3-14); Neutrophils Absolute Auto 13100 /uL (1500-7000); Neutrophils Percent Auto 85.2 % (50-75); Platelet Count 250 X10^3/uL (150-400); Red Cell Distribution Width 12.9 % (11.6-14.8); White Blood Cell Count 15.4 X10^3/uL (4.5-11.0)
[2024-06-07 16:12] LABS: Alanine Aminotransferase 21 IU/L (<35); Albumin 4.1 g/dL (3.5-5.0); Albumin Globulin Ratio 1.4 (1.0-2.8); Alkaline Phosphatase 81 U/L (38-126); BUN Creatinine Ratio 9.4 (6-22); Bilirubin Total 0.6 mg/dL (0.2-1.3); Blood Urea Nitrogen 6 mg/dL (7-17); Calcium 8.8 mg/dL (8.4-10.2); Carbon Dioxide 22 mmol/L (22-32); Chloride 104 mmol/L (98-107); Estimated Glomerular Filt Rate > 60 mL/min (>60); Globulin 2.9 g/dL (1.7-4.1); Glucose 121 mg/dL (70-100); Lipase 121 U/L (23-300); Sodium 132 mmol/L (137-145)
[2024-06-07 16:13] LABS: Aspartate Aminotransferase 32 IU/L (14-36); HEMOLYSIS 71 (0-50); Potassium 4.1 mmol/L (3.4-5.1)
[2024-06-07 16:20] LABS: Influenza A - CEPHEID Flu A NEGATIVE (NEGATIVE); Influenza B - CEPHEID Flu B NEGATIVE (NEGATIVE); Respiratory Syncytial Virus Negative (Negative)
[2024-06-07 16:21] LABS: COVID-19 CEPHEID 4-PLEX PCR Negative (Negative)
--- NOTE | 2024-06-07 16:30 | DI.CT.S_ITS ---
PROCEDURE: CT KIDNEY URETER BLADDER (KUB) INDICATIONS: Bilateral kidney pain and pelvic pain, history of kidney stones, please evaluate for kidney stone TECHNIQUE: Axial sections were acquired from the lung bases to the pubic symphysis. Coronal and sagittal reformats were performed. For radiation dose reduction, the following was used: automated exposure control, adjustment of mA and/or kV according to patient size. COMPARISON: None. FINDINGS: Image quality: Diagnostic. Lower Chest: No significant findings. URINARY: Right Kidney: No stones or hydronephrosis. Right Ureter: No hydroureter. Left Kidney: No stones or hydronephrosis. Left Ureter: No hydroureter. Bladder: Normal wall thickness. No stones. ABDOMEN: Liver: No contour-deforming solid mass. Gallbladder: Cholecystectomy. Biliary ducts: No biliary dilation. Pancreas: No ductal dilation. Spleen: Size is within normal limits. Adrenal Glands: No adrenal nodules. Stomach and Bowel: Bariatric surgery can be seen. No dilated loops of small bowel are seen. A normal appendix is noted, as on series 4, image 54. No significant colonic abnormality is seen. Peritoneum: No abnormal intraperitoneal fluid. No free air. Ventral Wall: No hernia. Abdominal Nodes: No enlarged retroperitoneal or mesenteric lymph nodes. Vessels: Aorta and inferior vena cava are normal in size. PELVIS: Pelvic Organs: No adnexal masses are seen on either side. Pelvic Nodes: Unremarkable. Miscellaneous: No inguinal hernias are seen. A central pelvic clip can be seen, as on series 2, image 125. Bones: Unremarkable. IMPRESSION: No imaging explanation is found for this patient's presenting symptoms. No obstructing stones or hydronephrosis. Additional findings: Bariatric surgery Cholecystectomy Normal appendix Dictated by: Isrrael Mei M.D. on 06/07/2024 at 16:02 Approved by: Isrrael Mei M.D. on 06/07/2024 at 16:04
[2024-06-07] MEDS: KETOROLAC 30 MG/ML VIAL 15 MG IV (16:35)
[2024-06-07] MEDS: ONDANSETRON 4 MG/2 ML INJ IV (16:36)
--- NOTE | 2024-06-07 17:38 | DI.US.S_ITS ---
PROCEDURE: US PELVIC COMPLETE INDICATIONS: pelvic lower abd pain, neg HCG, neg CT TECHNIQUE: Real-time scanning was performed of the pelvic organs, with image documentation. Additional endovaginal scanning was necessary due to incomplete visualization of the adnexal and endometrial structures by transabdominal scanning. COMPARISON: [facility], CT, CT KIDNEY URETER BLADDER (KUB), 06/07/2024, 16:31. FINDINGS: Uterus: Uterus is retroverted and normal in size at 8.4 x 5.2 x 6.4 cm. The myometrium is homogeneous. The endometrial stripe is abnormally thickened at 21.3 mm. Ovaries: The right ovary measures 1.9 x 3.6 x 2.3 cm, with a calculated ovarian volume of 8.1 cc. The left ovary measures 3.1 x 3.8 x 1.8 cm, with a calculated ovarian volume of 10.8 cc. Within the left ovary, there is a likely collapsing cyst measuring up to 2.5 cm, with minimal adjacent free fluid. Less than 12 follicles can be seen in each ovary. No adnexal masses are seen. Normal appearing arterial waveforms are confirmed to each ovary. Other: A small amount of free pelvic fluid can be seen within the left adnexal region. IMPRESSION: Likely collapsing cyst involving the left ovary, with mild adjacent free fluid. We strive to produce accurate, complete, and clear reports of imaging services. To assist us in improving patient care, this report was composed using standard report templates and voice recognition software. Therefore, it may contain abnormal punctuation, insertions and/or omissions. Occasional wrong-word or sound-alike substitutions may occur. Though we review the report and make efforts to correct it, we do recommend that the report be read carefully in proper context to recognize any text inaccuracies. Dictated by: Isrrael Mei M.D. on 06/07/2024 at 18:18 Approved by: Isrrael Mei M.D. on 06/07/2024 at 18:20
[2024-06-07] MEDS: SODIUM CHLORIDE 0.9% 1,000 ML 1000 ML IV (17:50)
--- NOTE | 2024-06-07 18:05 | ED.ABDPAIN ---
HPI - Abdominal Pain General Chief Complaint: Abdominal Pain Stated Complaint: pelvic px Time Seen by Provider: 06/07/24 17:38 Source: patient Mode of arrival: Ambulatory History of Present Illness HPI narrative: Patient 33-year-old healthy female presenting today with bilateral flank pain and vaginal pain. She is 4 months currently still nursing. She says yesterday she felt like she had a little bit of a runny nose and cold. Today she woke up with body aches she is some bilateral flank pain and reports vaginal pain. She denies any significant vaginal discharge. She does not have painful frequent urination. No nausea or vomiting. She did receive Toradol prior to my evaluation says that it has helped but she still can not roll over on her back. She had uneventful and delivery. In monogamous relationship with her , no concern for STD or HSV. Not having any sort of abdominal pain. Related Data Home Medications Medication Instructions Recorded Confirmed levothyroxine 100 mcg tablet 100 mcg PO DAILY 07/02/23 04/02/24 pediatric multivitamin no.209 tab PO 07/02/23 04/02/24 (Children's Multivitamin Gummy chewable tablet) cyanocobalamin (vitamin B-12) See Rx Instructions .Route .COMPLEX 07/03/23 04/02/24 1,000 mcg/mL injection solution docusate sodium 100 mg capsule 100 mg PO DAILY 07/03/23 04/02/24 ferrous sulfate 325 mg (65 mg 325 mg PO DAILY 07/03/23 04/02/24 iron) tablet meclizine 25 mg tablet 25 mg PO TID PRN Acid Reflux 07/03/23 04/02/24 omeprazole 20 mg capsule,delayed 20 mg PO BID 07/03/23 04/02/24 release Previous Rx's Medication Instructions Recorded epinephrine 0.3 mg/0.3 mL 0.3 mg (0.3 mL) IM ONCE #2 ea 11/13/23 injection, auto-injector (EpiPen 2-Michael) breast pump #1 ea 01/22/24 sennosides 8.6 mg-docusate sodium 1 tab-cap PO BEDTIME #30 tabs 02/06/24 50 mg tablet acetaminophen 325 mg tablet 650 mg (2 x 325 mg) PO Q6HR PRN 02/16/24 Pain, Mild (1-3) #30 tabs benzocaine 20 %-menthol 0.5 % 1 spray topical Q1HR PRN perineal 02/16/24 topical aerosol (Dermoplast (with pain #56 grams menthol)) glycerin-witch олег 12.5 %-50 % 1 pad topical Q30M PRN Itching #40 02/16/24 topical pads (A.E.R. Witch Олег) ea lanolin (Purelan topical cream) 1 applic topical PRN PRN 02/16/24 Tenderness #7 grams breast pump supplies #1 ea 04/02/24 hydrocodone 5 mg-acetaminophen 325 1 tab PO Q6H PRN pain #10 tabs 06/07/24 mg tablet Allergies Allergy/AdvReac Type Severity Reaction Status Date / Time bee venom protein (honey bee) Allergy Severe Anaphylaxis Verified 04/02/24 11:54 coconut Allergy Severe Difficulty Verified 04/02/24 11:54 Breathing Patient History Medical History PCOS (polycystic ovarian syndrome) Hypothyroidism Anemia Shingles Migraine without aura Congenital soft palate abnormality labor History of recurrent miscarriages Precipitous delivery Pituitary tumor Surgical History History of mandibular surgery History of cholecystectomy Status post selective transsphenoidal pituitary adenomectomy History of gastric bypass Family History Father Colon cancer Obesity Diabetes mellitus TIA (transient ischemic attack) Grandmother Colon cancer Granddaughter Breast cancer Heavy smoker Grandfather Stroke Grandfather Family estrangement Aunt Epilepsy Mother Diverticulosis Sister Hypothyroidism Social History marital status: number of children: 1 lives independently: Yes caregiver/support person: Yes housing: apartment pets and animals: No education level: college (associate's degree) occupational status: employed current occupational exposures/hazards: No special terrell needs: No travel history: recent ([place], [place], [place], domestic) seatbelt use: always helmet use: Yes water heater temp set < 120 deg: Yes working smoke detector in home: Yes fire extinguisher in home: No carbon monox detector in home: Yes firearms in home: No do you feel safe at home: Yes Smoking Status: Never smoker second hand exposure: Yes ( vapes and does not leave the room when he does so) alcohol intake: former (occasionally when not ) substance use type: does not use during the past year weight has: remained stable well-balanced diet: about half the time daily servings fruits/ve-4 (~2, mostly fruit) caffeine: Yes (AM cup coffee) Type(s) of exercise: walking and swimming Smoking Status: Never smoker Exam Initial Vital Signs Initial Vital Signs: Vital Signs Temperature 99.2 F 06/07/24 15:28 Pulse Rate 124 H 06/07/24 15:28 Respiratory Rate 20 06/07/24 15:28 Blood Pressure 123/71 06/07/24 15:28 Pulse Oximetry 97 06/07/24 15:28 Oxygen Delivery Method Room Air 06/07/24 15:28 GENERAL: Alert 33-year-old female and in no acute distress. HEENT: Head atraumatic,EOMI, pupils reactive, face symmetric, moist mucous membranes CARDIOVASCULAR: Regular rate and rhythm without murmurs, rubs or gallops. RESPIRATORY: Breath sounds equal bilaterally, no wheezes rales or rhonchi. ABDOMEN: Soft, nontender. No right lower quadrant tenderness no left lower quadrant tenderness no suprapubic pain. Normoactive bowel sounds all 4 quadrants. No guarding or rebound. PELVIC: External genitalia is normal, no vesicles or lesions no vaginal bleeding, there is some vaginal discharge white yellowish, no odor, cervical os is closed, mild bilateral adnexal tenderness : Minimal bilateral CVA tenderness EXTREMITIES: Normal range of motion, no clubbing or edema. Neurovascularly intact NEUROLOGICAL: Alert and oriented x4.Normal gait and speech. SKIN: Warm, dry, no laceration, no petechiae, no rashes or lesions. Course Orders Ordered: ED Orders 06/07/24 19:35 Chlamydia/Gonoc/Myco Genital Stat Genital Culture Stat Wet Prep Tric BV Chata Stat Discontinued Medications Hydrocodone Bitart/Acetaminophen (Hydrocodone/Acet 5/325 Tablet) 1 tab PO NOW ONE Stop: 06/07/24 19:48 Last Admin: 06/07/24 19:57 Dose: 1 tab Documented By: NICOLE Azithromycin (Azithromycin 250 Mg Tablet) 1,000 mg PO NOW ONE Stop: 06/07/24 19:39 Last Admin: 06/07/24 19:57 Dose: 1,000 mg Documented By: NICOLE Sodium Chloride (Normal Saline 0.9%) 1,000 mls @ 1,000 mls/hr IV BOLUS ONE Stop: 06/07/24 18:38 Last Infusion: 06/07/24 19:18 Dose: Infused Documented By: Admin: 06/07/24 17:50 Dose: 1,000 mls/hr Documented By: NICOLE Acetaminophen (Ofirmev) 1,000 mg in 100 mls @ 400 mls/hr IV NOW ONE Stop: 06/07/24 18:30 Last Infusion: 06/07/24 18:49 Dose: Infused Documented By: Admin: 06/07/24 18:25 Dose: 400 mls/hr Documented By: NICOLE Ceftriaxone Sodium 1,000 mg/ (Sodium Chloride) 100 mls @ 200 mls/hr IV NOW ONE Stop: 06/07/24 19:39 Last Infusion: 06/07/24 20:29 Dose: Infused Documented By: Admin: 06/07/24 19:57 Dose: 200 mls/hr Documented By: NICOLE Ketorolac Tromethamine (Ketorolac 30 Mg/Ml Vial) 15 mg IV NOW ONE Stop: 06/07/24 16:30 Last Admin: 06/07/24 16:35 Dose: 15 mg Documented By: MARVIN Ondansetron HCl (Ondansetron 4 Mg/2 Ml Inj) 4 mg IV NOW PRN PRN Reason: Nausea And Vomiting Ondansetron HCl (Ondansetron 4 Mg Odt) 4 mg PO NOW PRN PRN Reason: Nausea And Vomiting Ondansetron HCl (Ondansetron 4 Mg/2 Ml Inj) 4 mg IV NOW ONE Stop: 06/07/24 16:30 Last Admin: 06/07/24 16:36 Dose: 4 mg Documented By: MARVIN Vital Signs Vital signs: Vital Signs - 8 hr 06/07/24 20:30 06/07/24 20:32 06/07/24 20:33 Temperature Pulse Rate Blood Pressure 90/53 L 99/64 Pulse Oximetry 98 06/07/24 20:33 Temperature 98.3 F Pulse Rate 79 Blood Pressure Pulse Oximetry 97 MDM - Abdominal Pain Lab Data 06/07/24 15:52 06/07/24 15:52 Labs: Lab Results 06/07/24 06/07/24 06/07/24 Range/Units 15:36 15:45 15:52 WBC 15.4 H (4.5-11.0) X10^3/uL RBC 4.50 (4.0-5.2) X10^6/uL Hgb 13.1 (12.0-16.0) g/dL Hct 40.0 (36-46) % MCV 88.9 (80-100) fL MCH 29.1 (26-34) PG MCHC 32.7 (30-36) % RDW 12.9 (11.6-14.8) % Plt Count 250 (150-400) X10^3/uL Neut % (Auto) 85.2 H (50-75) % Lymph % (Auto) 7.8 L (25-40) % Clayton % (Auto) 5.7 (3-14) % Eos % (Auto) 1.0 L (2-4) % Baso % (Auto) 0.3 (0-2) % Neut # (Auto) 45210 H (6496-9552) /uL Lymph # (Auto) 1200 (8545-2021) /uL Clayton # (Auto) 900 (0-900) /uL Eos # (Auto) 200 (0-450) /uL Baso # (Auto) 0 (0-100) /uL Sodium 132 L (137-145) mmol/L Potassium 4.1 (3.4-5.1) mmol/L Chloride 104 (98-107) mmol/L Carbon Dioxide 22 (22-32) mmol/L BUN 6 L (7-17) mg/dL Creatinine 0.64 (0.52-1.04) mg/dL Estimated GFR > 60 (>60) mL/min BUN/Creatinine Ratio 9.4 (6-22) Glucose 121 H (70-100) mg/dL Lactate (0.7-2.1) mmol/L Calcium 8.8 (8.4-10.2) mg/dL Total Bilirubin 0.6 (0.2-1.3) mg/dL AST 32 (14-36) IU/L ALT 21 (<35) IU/L Alkaline Phosphatase 81 (38-126) U/L Total Protein 7.0 (6.3-8.2) g/dL Albumin 4.1 (3.5-5.0) g/dL Globulin 2.9 (1.7-4.1) g/dL Albumin/Globulin Ratio 1.4 (1.0-2.8) Lipase 121 (23-300) U/L Procalcitonin (<0.5) ng/mL Ur Chlamydia DNA (PCR) Not detected SARS-CoV-2 (PCR) Negative (Negative) Influenza A (RT-PCR) Flu a negative (NEGATIVE) Influenza B (RT-PCR) Flu b negative (NEGATIVE) RSV (PCR) Negative (Negative) N gonorrhoeae DNA (PCR) Not detected 06/07/24 Range/Units 18:09 WBC (4.5-11.0) X10^3/uL RBC (4.0-5.2) X10^6/uL Hgb (12.0-16.0) g/dL Hct (36-46) % MCV (80-100) fL MCH (26-34) PG MCHC (30-36) % RDW (11.6-14.8) % Plt Count (150-400) X10^3/uL Neut % (Auto) (50-75) % Lymph % (Auto) (25-40) % Clayton % (Auto) (3-14) % Eos % (Auto) (2-4) % Baso % (Auto) (0-2) % Neut # (Auto) (7832-5624) /uL Lymph # (Auto) (3702-1315) /uL Clayton # (Auto) (0-900) /uL Eos # (Auto) (0-450) /uL Baso # (Auto) (0-100) /uL Sodium (137-145) mmol/L Potassium (3.4-5.1) mmol/L Chloride (98-107) mmol/L Carbon Dioxide (22-32) mmol/L BUN (7-17) mg/dL Creatinine (0.52-1.04) mg/dL Estimated GFR (>60) mL/min BUN/Creatinine Ratio (6-22) Glucose (70-100) mg/dL Lactate 0.7 (0.7-2.1) mmol/L Calcium (8.4-10.2) mg/dL Total Bilirubin (0.2-1.3) mg/dL AST (14-36) IU/L ALT (<35) IU/L Alkaline Phosphatase (38-126) U/L Total Protein (6.3-8.2) g/dL Albumin (3.5-5.0) g/dL Globulin (1.7-4.1) g/dL Albumin/Globulin Ratio (1.0-2.8) Lipase (23-300) U/L Procalcitonin 0.040 (<0.5) ng/mL Ur Chlamydia DNA (PCR) SARS-CoV-2 (PCR) (Negative) Influenza A (RT-PCR) (NEGATIVE) Influenza B (RT-PCR) (NEGATIVE) RSV (PCR) (Negative) N gonorrhoeae DNA (PCR) Point of care testing: Point of Care Testing Test Results Negative Urine Dip Bedside Urine Glucose Negative Bedside Urine Bilirubin - Negative Bedside Urine Ketone - Negative Bedside Urine Occult Blood - Negative Bedside Urine Protein - Negative Bedside Urine Urobilinogen - Negative Bedside Urine Nitrite - Negative Bedside Urine Leukocytes - Negative Esterase Imaging Data CT scan - abdomen/pelvis: Radiologist's Impression: PROCEDURE: CT KIDNEY URETER BLADDER (KUB) INDICATIONS: Bilateral kidney pain and pelvic pain, history of kidney stones, please evaluate for kidney stone TECHNIQUE: Axial sections were acquired from the lung bases to the pubic symphysis. Coronal and sagittal reformats were performed. For radiation dose reduction, the following was used: automated exposure control, adjustment of mA and/or kV according to patient size. COMPARISON: None. FINDINGS: Image quality: Diagnostic. Lower Chest: No significant findings. URINARY: Right Kidney: No stones or hydronephrosis. Right Ureter: No hydroureter. Left Kidney: No stones or hydronephrosis. Left Ureter: No hydroureter. Bladder: Normal wall thickness. No stones. ABDOMEN: Liver: No contour-deforming solid mass. Gallbladder: Cholecystectomy. Biliary ducts: No biliary dilation. Pancreas: No ductal dilation. Spleen: Size is within normal limits. Adrenal Glands: No adrenal nodules. Stomach and Bowel: Bariatric surgery can be seen. No dilated loops of small bowel are seen. A normal appendix is noted, as on series 4, image 54. No significant colonic abnormality is seen. Peritoneum: No abnormal intraperitoneal fluid. No free air. Ventral Wall: No hernia. Abdominal Nodes: No enlarged retroperitoneal or mesenteric lymph nodes. Vessels: Aorta and inferior vena cava are normal in size. PELVIS: Pelvic Organs: No adnexal masses are seen on either side. Pelvic Nodes: Unremarkable. Miscellaneous: No inguinal hernias are seen. A central pelvic clip can be seen, as on series 2, image 125. Bones: Unremarkable. IMPRESSION: No imaging explanation is found for this patient's presenting symptoms. No obstructing stones or hydronephrosis. Additional findings: Bariatric surgery Cholecystectomy Normal appendix Dictated by: Isrrael Mei M.D. on 06/07/2024 at 16:02 US - TYPO MACHINE OPERATOR: Radiologist's Impression: PROCEDURE: US PELVIC COMPLETE INDICATIONS: pelvic lower abd pain, neg HCG, neg CT TECHNIQUE: Real-time scanning was performed of the pelvic organs, with image documentation. Additional endovaginal scanning was necessary due to incomplete visualization of the adnexal and endometrial structures by transabdominal scanning. COMPARISON: [facility], CT, CT KIDNEY URETER BLADDER (KUB), 06/07/2024, 16:31. FINDINGS: Uterus: Uterus is retroverted and normal in size at 8.4 x 5.2 x 6.4 cm. The myometrium is homogeneous. The endometrial stripe is abnormally thickened at 21.3 mm. Ovaries: The right ovary measures 1.9 x 3.6 x 2.3 cm, with a calculated ovarian volume of 8.1 cc. The left ovary measures 3.1 x 3.8 x 1.8 cm, with a calculated ovarian volume of 10.8 cc. Within the left ovary, there is a likely collapsing cyst measuring up to 2.5 cm, with minimal adjacent free fluid. Less than 12 follicles can be seen in each ovary. No adnexal masses are seen. Normal appearing arterial waveforms are confirmed to each ovary. Other: A small amount of free pelvic fluid can be seen within the left adnexal region. IMPRESSION: Likely collapsing cyst involving the left ovary, with mild adjacent free fluid. We strive to produce accurate, complete, and clear reports of imaging services. To assist us in improving patient care, this report was composed using standard report templates and voice recognition software. Therefore, it may contain abnormal punctuation, insertions and/or omissions. Occasional wrong-word or sound-alike substitutions may occur. Though we review the report and make efforts to correct it, we do recommend that the report be read carefully in proper context to recognize any text inaccuracies. Dictated by: Isrrael Mei M.D. on 06/07/2024 at 18:18 MDM Narrative Medical decision making narrative: MDM CC: Back pain vaginal pain Complicating co-morbidities: Hypothyroid 4 months Medical records reviewed: Previous OB visits Differential considered: Nephrolithiasis, pyelonephritis, appendicitis PID ovarian torsion ovarian abscess, Exam documented above, pertinent findings include: Appears to not feel well some mild bilateral flank pain abdomen is soft and nontender, there is some vaginal discharge on exam with bilateral adnexal tenderness Lab Test results independently reviewed as above. Pertinent findings: WBC 15, lactate 0.7, pro count 0.04 negative urinalysis negative Viral panel negative Electrolytes within normal limits Creatinine 0.64 Urine gonorrhea chlamydia returned negative Independently reviewed EKG as above Imaging studies independently reviewed: CT abdomen pelvis no explanation for patient's symptoms Pelvic ultrasound shows a collapsed left ovarian cyst without abscess some mild free fluid Consultations: None Treatments: Toradol fluid Tylenol Re-evaluations: Patient is feeling little bit better after Toradol and Tylenol blood pressure is soft has improved Discussion: Patient 33-year-old female presenting today with vaginal pain body aches and back pain. She was found to have leukocytosis of 15 without an obvious source. Her respiratory swab is negative. Imaging does not show an obvious source she does have collapsed left ovarian cyst but no obvious abscess or torsion. She has not tender in her left lower quadrant but does have bilateral adnexal tenderness on exam. Will treat her for PID empirically although both she and her has been are monogamous and no history. No obvious sign herpes. Discharge Plan Departure Patient Disposition: Home Clinical Impression: Viral illness, Acute pelvic inflammatory disease (PID) Instructions: DI for Pelvic Inflammatory Disease (PID) Activity Restrictions/Additional Instructions: *You have been diagnosed with viral illness *What to do: It is unclear what is causing your pain. You did have a little bit of abnormal discharge cultures are pending. We did treat you for pelvic infection but it is unclear what that is at this time. I recommend increase fluids as tolerated *Continue to take medications as directed Motrin 600 mg every 6 hours for [id number] Tylenol 650 mg every 6 hours if needed for [id number] pain Freer every 6 hours only if needed for severe pain *Follow up with your primary care provider in 2-3 days or call [phone] *Return to ER if you should have increasing dizziness lightheadedness worsening back pain [or] any new, worsening or concerning symptoms CONTROLLED SUBSTANCE DISCHARGE (Narcotoic/benzodiazepine/Flexeril/Phenergan) 1. You have been prescribed narcotic medications, it does have acetaminophen/Tylenol/paracetamol in it, DO NOT TAKE MORE THAN 4,00mg in 24 hours of Tylenol. TRAMADOL DOES NOT CONTAIN TYLENOL 2. Please understand that we cannot provide further refills of narcotics, benzodiazepines or controlled substances through the ED and her pain management will need to be through your provider. 3. While on these medications you cannot drive or operate heavy machinery. 4. You cannot sign legal documents or perform any duties such as this. 5. As long as you're taking opiate pain medications he should also be taking a stool softener such as Colace, Dulcolax, MiraLAX or prune juice, to help avoid constipation. Prescriptions: New hydrocodone-acetaminophen 5-325 mg tablet 1 tab PO Q6H PRN (Reason: pain) Qty: 10 0RF No Action Children's Multivitamin Gummy Tablet,Chewable PO levothyroxine 100 mcg tablet 100 mcg PO DAILY omeprazole 20 mg capsule,delayed release(DR/EC) 20 mg PO BID cyanocobalamin (vitamin B-12) 1,000 mcg/mL solution See Rx Instructions .ROUTE .COMPLEX Rx Instructions: 100 mcg intramuscularly. twice a month meclizine 25 mg tablet 25 mg PO TID PRN (Reason: Acid Reflux) Patient Comments: I'm not taking it unless I need it per patient ferrous sulfate 325 mg (65 mg iron) tablet 325 mg PO DAILY docusate sodium 100 mg capsule 100 mg PO DAILY epinephrine [EpiPen 2-Michael] 0.3 mg/0.3 mL auto-injector 0.3 mg IM ONCE Qty: 2 0RF Patient Comments: per patient I last needed it 5 years ago Rx Instructions: as a single dose; may repeat once (DME) breast pump Device See Rx Instructions .ROUTE .MEDSUPPLY Qty: 1 0RF Rx Instructions: double electric breast pump sennosides-docusate sodium 8.6-50 mg tablet 1 tab-cap PO BEDTIME Qty: 30 4RF (DME) breast pump supplies See Rx Instructions .Route .MEDSUPPLY Qty: 1 0RF Rx Instructions: As directed acetaminophen 325 mg Tablet 650 mg PO Q6HR PRN (Reason: Pain, Mild (1-3)) Qty: 30 0RF Dermoplast (with menthol) 20-0.5 % Aerosol 1 spray topical Q1HR PRN (Reason: perineal pain) Qty: 56 1RF Purelan Cream 1 applic topical PRN PRN (Reason: Tenderness) Qty: 7 2RF A.E.RJames Saravia 12.5-50 % Pads, Medicated 1 pad topical Q30M PRN (Reason: Itching) Qty: 40 1RF Referrals: Fernanda Soler ARNP [Primary Care Provider] - Stand Alone Forms: Patient Portal/API/Survey
[2024-06-07] MEDS: ACETAMINOPHEN IV 1,000 MG/100 ML VIAL 400 MG IV (18:25)
[2024-06-07 18:33] LABS: Lactate (Lactic Acid) 0.7 mmol/L (0.7-2.1)
[2024-06-07] MEDS: HYDROCODONE/ACET 5/325 TABLET 1 TAB PO (19:57)
[2024-06-07] MEDS: AZITHROMYCIN 250 MG TABLET 1000 MG PO (19:57)
[2024-06-07] MEDS: cefTRIAXone 1,000 MG in SODIUM CHLORIDE 0.9% 100 ML 200 MG IV (19:57)
[2024-06-07 20:20] LABS: Urine N gonorrhoeae NOT DETECTED
[2024-06-07 20:25] LABS: Urine Chlamydia NOT DETECTED
== END 2024-06-07 20:44 | disposition home or self-care (01) ==
PROVIDERS: Emergency Medicine; Emergency Provider Emergency Medicine; PCP Nurse Practitioner Family
DX: N73.9 Female pelvic inflammatory disease, unspecified (principal); B34.9 Viral infection, unspecified; N83.202 Unspecified ovarian cyst, left side
CPT/HCPCS: 0241U; 36415; 74176; 76830; 76856; 80053; 81003; 81025; 83605; 83690; 84145; 85025; 87040; 87070; 87205; 87210; 87491; 87563; 87591; 93975; 96365; 96367; 99284; 99285; J0134; J0696; J1885; J2405